=== PATIENT | male | born 1975 | race American Indian/Alaskan Native ===

== ENCOUNTER → 2017-07-04 | Outpatient (CLI) | payer BC ==
[~2017-07-04] MED LIST: ALPR-429 PO; HYDR-4309 PO; NONE REPORTED
--- NOTE | 2017-07-04 13:19 | EKG ---
FACILITY: [facility] PATIENT NAME: TRISTIAN GALAN : [id number] MR: [id number]: [id number] EXAM DATE: ORDERING PHYSICIAN: CHAUNCEY DOSS TECHNOLOGIST: RAMON Minor Reason : CP Blood Pressure : / mmHG Vent. Rate : 078 BPM Atrial Rate : 078 BPM P-R Int : 158 ms QRS Dur : 098 ms QT Int : 368 ms P-R-T Axes : 073 -08 050 degrees QTc Int : 419 ms Normal sinus rhythm Normal ECG No previous ECGs available Confirmed by SHASTA STEINER ([id number]) on 07/05/2017 12:29:35 PM Referred By: SELAM Confirmed By:SHASTA STEINER
== END ==
LOC: RESP 13:04
PROVIDERS: ATTEND Nurse Practitioner Primary Care
DX: R07.9 Chest pain, unspecified (principal)
CPT/HCPCS: 36415; 84484; 93005